=== PATIENT | male | born 2000 | race Caucasian/White ===

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

== ENCOUNTER 2021-03-03 06:49 | Emergency (ER) | payer OTHER ==
[~2021-03-03] VITALS: Ht 182.9 cm; Wt 56.7 kg
[2021-03-03] MEDS ORDERED: AMOCLA875 PO (07:12)
[2021-03-03] MEDS ORDERED: PRED20 PO (07:12)
[2021-03-03] MEDS ORDERED: HYDR1TAB94 PO (07:12)
[2021-03-04] MEDS ORDERED: PRED20 PO (22:20)
[2021-03-04] MEDS ORDERED: BENADRYL25 MG PO (22:20)
[2021-03-04] MEDS ORDERED: Clindamycin HC150 MG PO (22:20)
== END 2021-03-03 07:31 | disposition home or self-care (01) ==
LOC: ER 06:49
DX: L03.211 Cellulitis of face (principal); K02.9 Dental caries, unspecified; Z91.030 Bee allergy status
CPT/HCPCS: A9270

== ENCOUNTER 2021-03-04 17:26 | Emergency (ER) | payer OTHER ==
[~2021-03-04] VITALS: Ht 182.9 cm; Wt 56.7 kg
[~2021-03-04 17:26] MED LIST changes: +AMOCLA875 PO; +HYDR1TAB94 PO; +PRED20 PO
[2021-03-04] MEDS ORDERED: Clindamycin HC150 MG PO (22:20)
[2021-03-04] MEDS ORDERED: PRED20 PO (22:20)
[2021-03-04] MEDS ORDERED: BENADRYL25 MG PO (22:20)
== END 2021-03-04 18:59 | disposition left against medical advice (07) ==
LOC: ER 17:26
DX: R21 Rash and other nonspecific skin eruption (principal); Z53.21 Procedure and treatment not carried out due to patient leaving prior to being seen by health care provider

== ENCOUNTER 2021-03-04 20:32 | Emergency (ER) | payer OTHER ==
[~2021-03-04] VITALS: Ht 182.9 cm; Wt 59.0 kg
[2021-03-04] MEDS ORDERED: BENADRYL25 MG PO (22:20)
[2021-03-04] MEDS ORDERED: Clindamycin HC150 MG PO (22:20)
[2021-03-04] MEDS ORDERED: PRED20 PO (22:20)
== END 2021-03-04 22:40 | disposition home or self-care (01) ==
LOC: ER 20:32
DX: L50.9 Urticaria, unspecified (principal); K02.9 Dental caries, unspecified; Z91.030 Bee allergy status; Z88.0 Allergy status to penicillin
CPT/HCPCS: A9270; J7512

== ENCOUNTER 2022-02-01 14:32 | Emergency (ER) | payer OTHER ==
[~2022-02-01] VITALS: Ht 177.8 cm; Wt 54.4 kg
[~2022-02-01 14:32] MED LIST changes: +Clindamycin HC150 MG PO
[2022-02-01] MEDS ORDERED: ONDA4ODT MM (15:30)
[2022-02-01] MEDS ORDERED: Norco 5-325 Ta1 EACH PO (15:30)
[2022-02-01] MEDS ORDERED: CLIN150 PO (15:30)
== END 2022-02-01 15:32 | disposition home or self-care (01) ==
LOC: ER 14:32
DX: K04.7 Periapical abscess without sinus (principal); Z88.0 Allergy status to penicillin; Z91.038 Other insect allergy status; Z79.899 Other long term (current) drug therapy
CPT/HCPCS: 99282

== ENCOUNTER 2022-03-07 07:41 | Emergency (ER) | payer OTHER ==
[~2022-03-07] VITALS: Ht 182.9 cm; Wt 59.0 kg
[~2022-03-07 07:41] MED LIST changes: +CLIN150 PO; +Norco 5-325 Ta1 EACH PO; +ONDA4ODT MM
[2022-03-07] MEDS ORDERED: CLIN300 PO (08:18)
[2022-03-07] MEDS ORDERED: Percocet 5-3251 EACH PO (08:18)
== END 2022-03-07 08:58 | disposition home or self-care (01) ==
LOC: ER 07:41
DX: K04.7 Periapical abscess without sinus (principal); Z88.0 Allergy status to penicillin; Z91.038 Other insect allergy status; Z79.899 Other long term (current) drug therapy
CPT/HCPCS: 99283

== ENCOUNTER 2022-04-03 19:52 | Emergency (ER) | payer OTHER ==
[~2022-04-03] VITALS: Ht 182.9 cm; Wt 56.7 kg
[~2022-04-03 19:52] MED LIST changes: +CLIN300 PO; +Percocet 5-3251 EACH PO
== END 2022-04-03 21:45 | disposition home or self-care (01) ==
LOC: ER 19:52
DX: S62.326A Displaced fracture of shaft of fifth metacarpal bone, right hand, initial encounter for closed fracture (principal); W22.8XXA Striking against or struck by other objects, initial encounter; Z91.038 Other insect allergy status; Z88.0 Allergy status to penicillin
CPT/HCPCS: 29125; 73130; 99283-25

== ENCOUNTER 2022-04-13 18:57 | Emergency (ER) | payer OTHER ==
[~2022-04-13] VITALS: Ht 180.3 cm; Wt 59.0 kg
[2022-04-13] MEDS ORDERED: ONDA4 PO (23:42)
[2022-04-13] MEDS ORDERED: OMEP20ER PO (23:42)
== END 2022-04-13 23:51 | disposition home or self-care (01) ==
LOC: ER 18:57
DX: R11.2 Nausea with vomiting, unspecified (principal); R07.89 Other chest pain; F17.290 Nicotine dependence, other tobacco product, uncomplicated; Z91.030 Bee allergy status; Z88.0 Allergy status to penicillin; Z88.8 Allergy status to other drugs, medicaments and biological substances; Z79.899 Other long term (current) drug therapy
CPT/HCPCS: 93005; 93010; A9270

== ENCOUNTER 2022-04-24 11:20 | Day surgery (SDC) | payer OTHER ==
[~2022-04-24] VITALS: Ht 180.3 cm; Wt 61.2 kg
[~2022-04-24 11:20] MED LIST changes: +Norco 5-325 Ta1 EACH; +OMEP20ER PO; +ONDA4 PO
--- NOTE | 2022-04-24 11:48 | NUR ---
Ambulatory in Day Surgery History, Chart, Medications and Allergies reviewed before start of procedure. Lungs clear T/O to Auscultation. Patient confirms NPO status and agrees with scheduled surgery. Pre-Op teaching done. Pt verbalizes understanding. PT BELONGINGS PLACED UNDERNEATH GURNEY FOR SAFEKEEPING.
--- NOTE | 2022-04-24 15:08 | NUR ---
Patient up to Ambulate independently. Gait steady. Discharge instructions reviewed with patient. Patient verbalizes understanding. Copy given to patient to take home.Lungs clear T/O to Auscultation. Discharged via wheelchair to private car for ride home. Pt mom shown tooth in front that had broken/fallen off during procedure due to biting down on LMA per PACU nurse. Patient refused to eat or drink in day surgery recovery and said he would take his pain meds when he went home.
== END 2022-04-24 22:45 | disposition home or self-care (01) ==
LOC: ORSCMMR 11:20 → ORD 12:30 → ORSCMMR 12:30
PROVIDERS: Orthopaedic Surgery
PROC: 0PSP34Z Reposition Right Metacarpal with Internal Fixation Device, Percutaneous Approach (ICD-10-PCS; principal; 2022-04-24 12:30)
DX: S62.366A Nondisplaced fracture of neck of fifth metacarpal bone, right hand, initial encounter for closed fracture (principal); K21.9 Gastro-esophageal reflux disease without esophagitis; Z79.899 Other long term (current) drug therapy
CPT/HCPCS: 73120; J0690; J1100; J1885; J2250; J2405; J2704; J3010; J7120

== ENCOUNTER 2022-11-10 18:17 | Emergency (ER) | payer OTHER ==
[~2022-11-10] VITALS: Ht 185.4 cm; Wt 59.0 kg
[2022-11-10 18:37] VITALS: BP 142/91
== END 2022-11-10 20:02 | disposition home or self-care (01) ==
LOC: ER 18:17
DX: S46.912A Strain of unspecified muscle, fascia and tendon at shoulder and upper arm level, left arm, initial encounter (principal); S29.012A Strain of muscle and tendon of back wall of thorax, initial encounter; X58.XXXA Exposure to other specified factors, initial encounter
CPT/HCPCS: 99283

== ENCOUNTER 2023-09-09 20:31 | Emergency (ER) | payer SELFPAY ==
[~2023-09-09] VITALS: Ht 182.9 cm; Wt 59.0 kg
[2023-09-09 20:44] VITALS: BP 121/75
[2023-09-09] MEDS ORDERED: Silver Sulfadiazine 1% Cream 25 APPLIC/25 GM Tube TOP ONE (22:00)
== END 2023-09-09 22:08 | disposition home or self-care (01) ==
LOC: ER 20:31
DX: L55.1 Sunburn of second degree (principal); F17.290 Nicotine dependence, other tobacco product, uncomplicated; Z88.0 Allergy status to penicillin; Z91.030 Bee allergy status; Z88.8 Allergy status to other drugs, medicaments and biological substances
CPT/HCPCS: A9270